=== PATIENT | female | born 1955 | race Hispanic/Latino ===

== ENCOUNTER 2020-03-14 11:11 | Emergency (ER) | payer BC, OTHER ==
--- OUTSIDE RECORDS SUMMARY | 2020-03-14 11:13 | XMS REPORT | Continuity of Care Document ---
:1955 Author Organization [facility] t Address [address] [place] [address] Care Team Providers Name Role Phone Unavailable Unavailable Unavailable Problems This patient has no known problems. Allergies, Adverse Reactions, Alerts This patient has no known allergies or adverse reactions. Medications Ordered Filled Start Stop Current Ordering Indication Dosage Frequency Signature Comments Components Source Medication Medication Date Date Medication? Clinician (SIG) Name Name Sertraline Sertraline Yes Laura [address] [facility] HCl HCl 4-23 [facility] Omeprazole Omeprazole 2017-02 Yes Laura [address] [facility] 1-08 [facility] Advair Advair 2017-02 Yes Laura [address] [facility] Diskus Diskus 1-08 [facility] ProAir HFA ProAir HFA 2017-02 Yes Laura [address] [facility] Lisinopril Lisinopril Yes Laura [address] [facility] Procedures This patient has no known procedures. Encounters Start End Encounter Admission Attending Care Care Encounter Source Date/Time Date/Time Type Type Clinicians Facility Department ID 2020-02-22 2020-02-22 Outpatient [facility] [id number] [facility] 2019-09-28 2019-09-28 [facility] [id number] [facility] 08:40[facility]00 08:40:00 [facility] Medicine Outpat[facility] Clinics 2019-09-27 2019-09-27 Outpatient [facility] [id number] [facility] 09:47:00 09:47:00 [facility] 2019-08-18 2019-08-18 [facility] [id number] [facility] 11:42:00 11:42:00 [facility] Out[facility] Clin[facility] 2019-06-03 2019-06-03 [facility] [id number] [facility] 15:00:00 15:00:00 [facility] Clin[facility] 2019-06-03 2019-06-03 [facility] [id number] [facility] 10:15:00 10:15:00 [facility] Medicine Medicine Outpati ent Clinics 2019-05-10 2019-05-10 [facility] [id number] [facility] 16:21:00 16:21:00 [facility] Medicine Outpat[facility] Clinics 2019-04-27 2019-04-27 [facility] [id number] [facility] 08:00:00 08:00:00 [facility] Medicine Medicine Outpati ent Clinics 2019-02-18 2019-02-18 [facility] [id number] [facility] 14:20:00 14:20:00 [facility] Medicine Outpat[facility] Clinics 2018-12-18 2018-12-18 [facility] [id number] [facility] 11:40:00 11:40:00 [facility] Clin[facility] 2018-02-13 2018-02-13 [facility] [id number] [facility] 09:00:00 09:00:00 [facility] Medicine Medicine Outpati ent Clinics Results This patient has no known results.
[2020-03-14 14:42] LABS: Absolute Lymphocytes (CBC) 1.7 K/uL (0.7-4.9); Hematocrit 42.1 % (36.0-45.0); Lymphocytes % 29.9 % (15.3-44.8); MPV 8.3 fL (7.6-11.3); RBC Red Blood Cell Count 4.73 M/uL (3.86-4.86)
[2020-03-14 14:43] LABS: Protime INR 0.9
[2020-03-14 14:53] LABS: ALT/SGPT 18 U/L (12-78); AST/SGOT 14 U/L (15-37); Albumin 4.2 g/dL (3.4-5.0); Alkaline Phosphatase 82 U/L (45-117); BUN Blood Urea Nitrogen 19 mg/dL (7-18); Bicarbonate 26 mmol/L (21-32); Bilirubin Direct 0.2 mg/dL (0-0.2); Bilirubin Total 0.9 mg/dL (0.2-1.0); Glucose Level 97 mg/dL (74-106); Magnesium 2.4 mg/dL (1.8-2.4); NT PRO-BNP 345 pg/mL (<125); Protein, Total 7.7 g/dL (6.4-8.2); Sodium Level 141 mmol/L (136-145); Troponin (Emerg Dept Use Only) < 0.02 ng/mL (0.0-0.045)
[2020-03-14] MEDS ORDERED: KETOROLAC 30 MG/ML INJ ONE (15:14)
[2020-03-14] MEDS ORDERED: LIDOCAINE 4% PATCH ONE (15:59)
--- NOTE | 2020-03-14 16:02 | RAD REPORT ---
EXAM DESCRIPTION: RAD - Chest Single View - 03/14/2020 3:09 pm CLINICAL HISTORY: left side back pain;Chest pain COMPARISON: Two-view chest February 2016 TECHNIQUE: AP portable chest image was obtained 03/14/2020 3:09 pm . FINDINGS: No acute lung parenchymal process confirmed. Left base is limited due to lordotic position ing and overlying heart. Given the history of left-sided chest pain, follow-up two view imaging may b e helpful to evaluate for possible minimal left infiltrate. Heart and vasculature are normal. No rama urable pleural effusion and no pneumothorax. No acute bony abnormality seen. No acute aortic findings suspected. IMPRESSION: No acute cardiopulmonary process confirmed though lower left lung field assessment is li mited. Given the left-sided symptoms, follow-up two view imaging may be helpful.
--- NOTE | 2020-03-14 17:56 | RAD REPORT ---
EXAM DESCRIPTION: RAD - Chest Pa And Lat (2 Views) - 03/14/2020 5:14 pm CLINICAL HISTORY: left side chest pain COMPARISON: Portable March 2020 TECHNIQUE: Frontal and lateral views of the chest were obtained. FINDINGS: The lungs are clear. Heart size is normal and central vasculature is within normal limit s. No pleural effusion or pneumothorax seen. No acute bony finding noted. No aortic abnormality. IMPRESSION: No acute cardiopulmonary process. No abnormal bone uptake seen suspicious for metastatic disease.
--- NOTE | 2020-03-14 18:09 | ER ---
Nurse's Notes [facility] Name: Cecilio Salazar Age: 64 yrs Sex: Female : 1955 Arrival Date: 03/14/2020 Time: 11:17 Bed 3 Private MD: Diagnosis: Other chest pain;Dorsalgia-left mid and upper back Presentation: 03/14 12:07 Chief complaint: Patient states: has had left side pain and burning to chest and back iw area X 3 days, denies having a rash, hurts more when her clothes touch it. Coronavirus screen: At this time, the client does not indicate any symptoms associated with coronavirus-19. Ebola Screen: Patient negative for fever greater than or equal to 101.5 degrees Fahrenheit, and additional compatible Ebola Virus Disease symptoms Patient denies exposure to infectious person. Patient denies travel to an Ebola-affected area in the 21 days before illness onset. No symptoms or risks identified at this time. Initial Sepsis Screen: Does the patient meet any 2 criteria? No. Patient's initial sepsis screen is negative. Does the patient have a suspected source of infection? No. Patient's initial sepsis screen is negative. Risk Assessment: Do you want to hurt yourself or someone else? Patient reports no desire to harm self or others. Onset of symptoms was March 10, 2020. 12:07 Method Of Arrival: Ambulatory iw 12:07 Acuity: FEMI 4 iw 14:20 Acuity: FEMI 3 iw Historical: - Allergies: 12:10 No Known Allergies; iw - Home Meds: 12:10 Omeprazole Oral once daily [Active]; unknown BP [Active]; iw - PMHx: 12:10 Hypertension; GERD; iw - PSHx: 12:10 Appendectomy; iw - Immunization history:: Adult Immunizations unknown. - Social history:: Smoking status: Patient denies any tobacco usage or history of. Screenin:15 Abuse screen: Denies threats or abuse. Denies injuries from another. Nutritional jl7 screening: No deficits noted. Tuberculosis screening: No symptoms or risk factors identified. Fall Risk IV access (20 points). Total Marks Fall Scale indicates No Risk (0-24 pts). Assessment: 14:15 General: Appears in no apparent distress. uncomfortable, Behavior is calm, cooperative, jl7 appropriate for age. Pain: Complains of pain in right trapezius, right scapular area, right subscapular area and right mid back Pain does not radiate. Pain currently is 3 out of 10 on a pain scale. Quality of pain is described as burning, tingling, Pain began x 5 days Is continuous. Neuro: Level of Consciousness is awake, alert, obeys commands, Oriented to person, place, time, situation. Cardiovascular: Denies chest pain, shortness of breath, Patient's skin is warm and dry. Rhythm is sinus bradycardia. Respiratory: Airway is patent Respiratory effort is even, unlabored, Respiratory pattern is regular, symmetrical. Derm: Rash noted that is raised, on right scapular area, right subscapular area and chest. 15:15 Reassessment: Patient appears in no apparent distress at this time. No changes from jl7 previously documented assessment. Patient and/or family updated on plan of care and expected duration. Pain level reassessed. Patient is alert, oriented x 3, equal unlabored respirations, skin warm/dry/pink. 16:15 Reassessment: Patient appears in no apparent distress at this time. No changes from jl7 previously documented assessment. Patient and/or family updated on plan of care and expected duration. Pain level reassessed. Patient is alert, oriented x 3, equal unlabored respirations, skin warm/dry/pink. 17:15 Reassessment: Patient appears in no apparent distress at this time. No changes from jl7 previously documented assessment. Patient and/or family updated on plan of care and expected duration. Pain level reassessed. Patient is alert, oriented x 3, equal unlabored respirations, skin warm/dry/pink. 18:06 Reassessment: ERP at bedside discussing results and POC. jl7 18:38 Reassessment: PT D/C HOME AMBULATORY WITH FAMILY, DX WITH MUSCULOSKELETAL PAIN. bp Vital Signs: 12:07 BP 160 / 100; Pulse 60; Resp 16; Temp 98.4; Pulse Ox 99% on R/A; iw 12:10 Weight 69.4 kg; iw 14:35 BP 145 / 82; Pulse 50; Resp 15; Pulse Ox 98% ; Pain 3/10; jl7 16:17 BP 143 / 75; Pulse 52; Resp 20; Temp 97.9(O); Pulse Ox 99% on R/A; 5 18:06 BP 153 / 73; Pulse 50; Resp 17; Pulse Ox 100% ; jl7 ED Course: 11:17 Patient arrived in ED. as 12:09 Triage completed. iw 12:39 Arm band placed on. iw 14:06 Dorothea Romero RN is Primary Nurse. jl7 14:06 Homer Ness PA is PHCP. cp 14:07 Shruthi Dolan MD is Attending Physician. cp 14:15 Initial lab(s) drawn, by wy, sent to lab. EKG done, by ED staff, reviewed by Homer RUIZ. Inserted saline lock: 20 gauge in right antecubital area, using aseptic technique. Blood collected. Patient maintains SpO2 saturation greater than 95% on room air. 14:31 Patient has correct armband on for positive identification. Placed in gown. Bed in low mh5 position. Call light in reach. Side rails up X 1. Warm blanket given. Pulse ox on. NIBP on. 14:56 Awaiting for x-ray. aa5 15:09 XRAY Chest (1 view) In Process Unspecified. EDMS 16:28 LAB Add On Sent. 5 17:11 XRAY Chest Pa And Lat (2 Views) In Process Unspecified. EDMS 18:38 No provider procedures requiring assistance completed. IV discontinued. bp Administered Medications: 14:59 Drug: TORadol - Ketorolac 15 mg Route: IVP; Site: right antecubital; jl7 16:00 Follow up: Response: Pain is decreased jl7 15:47 Drug: Lidoderm 5 % (700 mg/patch) 1 patches Route: Topical; Site: affected area; jl7 18:08 Follow up: Response: No adverse reaction; Pain is decreased jl7 Outcome: 18:09 Discharge ordered by MD. cp 18:36 Patient left the ED. iw 18:38 Discharged to home ambulatory, with family. bp 18:38 Condition: stable 18:38 Discharge instructions given to patient, Instructed on discharge instructions, follow up and referral plans. medication usage, Demonstrated understanding of instructions, follow-up care, medications, Prescriptions given X 3. Signatures: Dispatcher [employer] Viki John Irene, RN RN Aletha Negron RN RN [facility] Homer Ness PA PA cp Martinez, Maria [facility] Dorothea Romero RN RN jl7 Rusty Zhao, RN RN bp
--- NOTE | 2020-03-14 18:09 | EDPHYS ---
Physician Documentation [facility] Name: Cecilio Salazar Age: 64 yrs Sex: Female : 1955 Arrival Date: 03/14/2020 Time: 11:17 Bed 3 Private MD: ED Physician Shruthi Dolan HPI: 03/14 14:20 This 64 yrs old Female presents to ER via Ambulatory with complaints of Chest cp Pain, Back Pain. 14:20 The patient or guardian reports chest pain that is located primarily in the anterior cp chest wall, left. Onset: 3 day(s) ago. The chest pain is described as burning. Duration: The patient or guardian reports a single episode, that is still ongoing. Patient reports chest pain radiating around from left side mid and upper back. Pain described as burning and similar to when diagnosed with shingles. No rash noted. Denies injury. Pain worse with movement of back. Historical: - Allergies: 12:10 No Known Allergies; iw - Home Meds: 12:10 Omeprazole Oral once daily [Active]; unknown BP [Active]; iw - PMHx: 12:10 Hypertension; GERD; iw - PSHx: 12:10 Appendectomy; iw - Immunization history:: Adult Immunizations unknown. - Social history:: Smoking status: Patient denies any tobacco usage or history of. ROS: 14:25 Constitutional: Negative for body aches, chills, fever, poor PO intake. cp 14:25 Cardiovascular: Positive for chest pain, of the left side of chest, Negative for edema, cp palpitations. 14:25 Respiratory: Negative for cough, shortness of breath, wheezing. 14:25 Abdomen/GI: Negative for abdominal pain, nausea, vomiting, and diarrhea. 14:25 Back: Positive for pain at rest, of the left scapular area, left subscapular area and left mid back, Negative for injury or acute deformity. 14:25 Skin: Negative for cellulitis, rash. Exam: 14:30 Head/Face: Normocephalic, atraumatic. cp 14:30 Constitutional: The patient appears in no acute distress, alert, awake, comfortable, non-diaphoretic, non-toxic, well developed, well nourished. 14:30 Eyes: Periorbital structures: appear normal, Conjunctiva: normal, no exudate, no injection, Sclera: no appreciated abnormality, Lids and lashes: appear normal, bilaterally. 14:30 ENT: External ear(s): are unremarkable, Nose: is normal, Posterior pharynx: Airway: no evidence of obstruction, patent. 14:30 Neck: C-spine: vertebral tenderness, is not appreciated, crepitus, is not appreciated, ROM/movement: is normal, is supple, without pain, no range of motions limitations, no meningismus. 14:30 Chest/axilla: Inspection: normal, Palpation: is normal, no crepitus, no tenderness. 14:30 Cardiovascular: Rate: normal, Rhythm: regular, Heart sounds: murmur, not appreciated, Edema: is not appreciated, JVD: is not appreciated. 14:30 Respiratory: the patient does not display signs of respiratory distress, Respirations: normal, no use of accessory muscles, no retractions, labored breathing, is not present, Breath sounds: are clear throughout, no decreased breath sounds, no stridor, no wheezing. 14:30 Abdomen/GI: Inspection: abdomen appears normal, Palpation: abdomen is soft and non-tender, in all quadrants. 14:30 Back: pain, that is mild, of the left scapular area, left subscapular area and left mid back, tenderness, ROM is normal, vertebral tenderness, is not appreciated. 14:30 Skin: cellulitis, is not appreciated, no rash present. 14:30 Neuro: Orientation: to person, place \T\ time. Mentation: is normal. 14:35 ECG was reviewed by the Attending Physician. cp Vital Signs: 12:07 BP 160 / 100; Pulse 60; Resp 16; Temp 98.4; Pulse Ox 99% on R/A; iw 12:10 Weight 69.4 kg; iw 14:35 BP 145 / 82; Pulse 50; Resp 15; Pulse Ox 98% ; Pain 3/10; jl7 16:17 BP 143 / 75; Pulse 52; Resp 20; Temp 97.9(O); Pulse Ox 99% on R/A; mh5 18:06 BP 153 / 73; Pulse 50; Resp 17; Pulse Ox 100% ; jl7 MDM: 14:13 Patient medically screened. cp 14:45 Differential diagnosis: acute pericarditis, chest wall pain, costochondritis, pleurisy, cp pneumonia, pneumothorax, pulmonary embolus, stable angina, unstable angina, herpes zoster, musculoskeletal pain. 18:05 Data reviewed: vital signs, nurses notes, lab test result(s), EKG, radiologic studies, cp plain films. 18:05 Test interpretation: by ED physician or midlevel provider: ECG, plain radiologic cp studies. Counseling: I had a detailed discussion with the patient and/or guardian regarding: the historical points, exam findings, and any diagnostic results supporting the discharge/admit diagnosis, the presence of at least one elevated blood pressure reading (>120/80) during this emergency department visit, lab results, radiology results, the need for outpatient follow up, a family practitioner, to return to the emergency department if symptoms worsen or persist or if there are any questions or concerns that arise at home. ED course: VSS. Low suspicion for pain being cardiac in nature. Pain improved with lidoderm patch and toradol. Will discharge to home for continued monitoring. 03/14 14:14 Order name: Basic Metabolic Panel; Complete Time: 14:56 cp 03/14 16:05 Interpretation: Normal except: CL 110; BUN 19; GFR 67. cp 03/14 14:14 Order name: CBC with Diff; Complete Time: 14:56 cp 03/14 14:14 Order name: LFT's; Complete Time: 14:56 cp 03/14 14:14 Order name: Magnesium; Complete Time: 14:56 cp 03/14 14:14 Order name: NT PRO-BNP; Complete Time: 14:56 cp 03/14 14:14 Order name: PT-INR; Complete Time: 14:56 cp 03/14 14:14 Order name: Troponin (emerg Dept Use Only); Complete Time: 14:56 cp 03/14 14:14 Order name: XRAY Chest (1 view); Complete Time: 16:04 cp 03/14 16:11 Order name: D-Dimer; Complete Time: 17:10 cp 03/14 17:10 Interpretation: Reviewed. cp 03/14 16:11 Order name: LAB Add On cp 03/14 16:56 Order name: XRAY Chest Pa And Lat (2 Views); Complete Time: 18:03 cp 03/14 17:09 Order name: Troponin I cp 03/14 17:10 Order name: Troponin I; Complete Time: 18:03 EDMS 03/14 14:14 Order name: EKG; Complete Time: 14:15 03/14 14:14 Order name: Cardiac monitoring; Complete Time: 14: 03/14 14:14 Order name: EKG - Nurse/Tech; Complete Time: 14: cp 03/14 14:14 Order name: IV Saline Lock; Complete Time: 14: 03/14 14:14 Order name: Labs collected and sent; Complete Time: 14: 03/14 14:14 Order name: O2 Per Protocol; Complete Time: 14: 03/14 14:14 Order name: O2 Sat Monitoring; Complete Time: 14: cp EC:35 Rate is 49 beats/min. Rhythm is regular. VA interval is normal. QRS interval is normal. cp QT interval is normal. Interpreted by me. Reviewed by me. Administered Medications: 14:59 Drug: TORadol - Ketorolac 15 mg Route: IVP; Site: right antecubital; jl7 16:00 Follow up: Response: Pain is decreased jl7 15:47 Drug: Lidoderm 5 % (700 mg/patch) 1 patches Route: Topical; Site: affected area; jl7 18:08 Follow up: Response: No adverse reaction; Pain is decreased jl7 Disposition: 18:30 Chart complete. Disposition: 03/14/20 18:09 Discharged to Home. Impression: Other chest pain, Dorsalgia - left mid and upper back. - Condition is Stable. - Discharge Instructions: Back Pain, Adult, Chest Wall Pain, Aspirin and Your Heart, Heat Therapy. - Prescriptions for Lidoderm 5 % Topical adhesive patch,medicated - apply 1 patch by TRANSDERMAL route once daily; 1 box. Cyclobenzaprine 10 mg Oral Tablet - take 1 tablet by ORAL route every 8 hours As needed; 15 tablet. Medrol (Sanju) 4 mg Oral Tablets, Dose Pack - take 1 tablet by ORAL route as directed - follow package instructions; 1 packet. - Medication Reconciliation Form, Thank You Letter, Antibiotic Education, Prescription Opioid Use form. - Follow up: Private Physician; When: 1 - 2 days; Reason: Recheck today's complaints. - Problem is new. - Symptoms have improved. Addendum: 03/20/2020 19:16 Co-signature as Attending Physician, Mohammad Alzahri MD. m a2 Signatures: Dispatcher [employer] EDMS Ave Thomas RN RN iw Homer Ness PA PA cp Leal, Jahala, RN RN jl7 Shruthi Dolan MD MD ma2 Corrections: (The following items were deleted from the chart) 03/14 18:36 18:09 03/14/2020 18:09 Discharged to Home. Impression: Other chest pain; Dorsalgia - iw left mid and upper back. Condition is Stable. Forms are Medication Reconciliation Form, Thank You Letter, Antibiotic Education, Prescription Opioid Use. Follow up: Private Physician; When: 1 - 2 days; Reason: Recheck today's complaints. Problem is new. Symptoms have improved. cp 03/15 14:03/13 14:30 Constitutional: The patient appears in no acute distress, alert, awake, cp comfortable, non-diaphoretic, non-toxic, well developed, well nourished, cp 03/15 14:03/13 14:30 Head/Face: Normocephalic, atraumatic. cp cp 03/15 14:03/13 14:30 Eyes: Periorbital structures: appear normal, Conjunctiva: normal, no cp exudate, no injection, Sclera: no appreciated abnormality, Lids and lashes: appear normal, bilaterally, cp 03/15 14:03/13 14:30 ENT: External ear(s): are unremarkable, Nose: is normal, Posterior pharynx: cp Airway: no evidence of obstruction, patent, cp 03/15 14:03/13 14:30 Neck: C-spine: vertebral tenderness, is not appreciated, crepitus, is not cp appreciated, ROM/movement: is normal, is supple, without pain, no range of motions limitations, no meningismus, cp 03/15 14:03/13 14:30 Chest/axilla: Inspection: normal, Palpation: is normal, no crepitus, no cp tenderness, cp 03/15 13:03/14 14:30 Cardiovascular: Rate: normal, Rhythm: regular, Heart sounds: murmur, not cp appreciated, Edema: is not appreciated, JVD: is not appreciated, cp 03/15 14:03/14 14:30 Respiratory: the patient does not display signs of respiratory distress, cp Respirations: normal, no use of accessory muscles, no retractions, labored breathing, is not present, Breath sounds: are clear throughout, no decreased breath sounds, no stridor, no wheezing, cp 03/15 14:03/14 14:30 Abdomen/GI: Inspection: abdomen appears normal, Palpation: abdomen is soft cp and non-tender, in all quadrants, cp 03/15 14:03/14 14:30 Back: pain, that is mild, of the left scapular area, left subscapular area cp and left mid back, tenderness, ROM is normal, vertebral tenderness, is not appreciated, cp 03/15 13:03/14 14:30 Skin: cellulitis, is not appreciated, no rash present. cp cp 03/15 14:03/14 14:30 Neuro: Orientation: to person, place \T\ time. Mentation: is normal, cp cp
[2020-03-14 19:29] VITALS: TEMP 97.9
[2020-03-14 19:30] VITALS: BP 153/73; O2SAT 100
--- NOTE | 2020-03-15 12:18 | EKG ---
Test Date: 2020-03-14 Test Time: 14:31:05 [employer] Cashier: MIKEY MEASUREMENT RESULTS: Intervals: Rate: 49 VT: 160 QRSD: 94 QT: 442 QTc: 399 Alba: P: 33 VT: 160 QRS: -30 T: 20 INTERPRETIVE STATEMENTS: Marked sinus bradycardia Left axis deviation Minimal voltage criteria for LVH, may be normal variant Abnormal ECG No previous ECG available for comparison Electronically Signed On 03-15-20 12:15:27 CATERING COOK by Thor Jessica
== END 2020-03-14 18:36 | disposition home or self-care (01) ==
LOC: ER 11:11
DX: R07.89 Other chest pain (principal); M54.6 Pain in thoracic spine; I10 Essential (primary) hypertension; K21.9 Gastro-esophageal reflux disease without esophagitis
CPT/HCPCS: 36415; 71045; 71046; 80048; 80076; 83735; 83880; 84484; 85025; 85379; 85610; 93005; 96374; 99285